=== PATIENT | female | born 1985 | race Caucasian/White ===

== ENCOUNTER 2016-10-19 13:38 | Emergency (ER) | payer MEDICAID ==
[~2016-10-19] VITALS: Ht 167.6 cm; Wt 63.5 kg
[2016-10-19 15:10] VITALS: BP 132/81
== END 2016-10-19 15:55 | disposition home or self-care (01) ==
LOC: ER 13:42
DX: L02.31 Cutaneous abscess of buttock (principal); J45.909 Unspecified asthma, uncomplicated; F17.210 Nicotine dependence, cigarettes, uncomplicated
CPT/HCPCS: 99283; C1887

== ENCOUNTER 2018-12-30 11:36 | Emergency (ER) | payer MEDICAID ==
[~2018-12-30] VITALS: Ht 165.1 cm; Wt 61.2 kg
[2018-12-30 11:50] VITALS: BP 115/70
[2018-12-30] MEDS ORDERED: ONDANSETRON ODT 4 MG TAB PO ONE (12:30)
[2018-12-30] MEDS ORDERED: DICYCLOMINE HCL 10 MG CAP PO ONE (12:30)
== END 2018-12-30 13:28 | disposition home or self-care (01) ==
LOC: ER 11:41
DX: R19.7 Diarrhea, unspecified (principal); B34.9 Viral infection, unspecified; J45.909 Unspecified asthma, uncomplicated; F17.210 Nicotine dependence, cigarettes, uncomplicated; Z88.0 Allergy status to penicillin
CPT/HCPCS: 81002; 81025; 99283; J0500; Q0162

== ENCOUNTER 2019-11-14 14:14 | Emergency (ER) | payer MEDICAID ==
[~2019-11-14] VITALS: Ht 165.1 cm; Wt 59.0 kg
[2019-11-14 14:39] VITALS: BP 153/86
[2019-11-14] MEDS ORDERED: cefTRIAXone SOD 1,000 MG VL IM ONE (16:15)
[2019-11-14] MEDS ORDERED: TETANUS-DIPTH-ACEL PERTUSSIS 0.5ML SYR Tdap IM ONE (16:45)
== END 2019-11-14 18:00 | disposition left against medical advice (07) ==
LOC: ER 14:16
DX: L08.9 Local infection of the skin and subcutaneous tissue, unspecified (principal); F17.210 Nicotine dependence, cigarettes, uncomplicated; J45.909 Unspecified asthma, uncomplicated; Z88.0 Allergy status to penicillin
CPT/HCPCS: 90471; 90715; 96372; 99284; J0696

== ENCOUNTER 2019-12-21 15:53 | Emergency (ER) | payer MEDICAID ==
[~2019-12-21] VITALS: Ht 167.6 cm; Wt 56.7 kg
[2019-12-21 16:01] VITALS: BP 123/78
[2019-12-21] MEDS ORDERED: KETOROLAC TROMETH 60MG/2ML VIAL IM ONE (16:15)
== END 2019-12-21 17:23 | disposition home or self-care (01) ==
LOC: ER 15:53
DX: S32.010A Wedge compression fracture of first lumbar vertebra, initial encounter for closed fracture (principal); X50.0XXA Overexertion from strenuous movement or load, initial encounter; Y93.89 Activity, other specified; Y92.89 Other specified places as the place of occurrence of the external cause; Y99.8 Other external cause status; J45.909 Unspecified asthma, uncomplicated
CPT/HCPCS: 72100; 96372; 99283; J1885